=== PATIENT | female | born 1995 | race Caucasian/White ===

== ENCOUNTER 2017-04-09 21:42 | Emergency (ER) | payer OTHER ==
[~2017-04-09] VITALS: Ht 157.5 cm; Wt 66.1 kg
[2017-04-09 21:47] VITALS: TEMP 37.3; Ht 157.5 cm; Wt 66.1 kg
[2017-04-09] MEDS ORDERED: CEFTRIAXONE SOD 350MG/ML 1 GM VIAL IM STA (22:24)
[2017-04-09] MEDS ORDERED: AZITHROMYCIN 250 MG TAB PO ONE (22:30)
[2017-04-09 22:32] LABS: URINE APPEARANCE CLEAR (CLEAR); URINE BILIRUBIN NEG (NEG); URINE COLOR YELLOW; URINE EPITHELIAL CELL AUTO 20-30 /lpf (0-5); URINE NITRITE NEG (NEG); URINE SPECIFIC GRAVITY 1.011 (1.000-1.030); UROBILINOGEN NEG (NEG); ZZUR CULT IF INDIC CLEAN CATCH YES
[2017-04-09 22:37] LABS: MANUAL MICROSCOPIC REQUIRED? NO; REVIEW REQ? NO
[2017-04-09] MEDS ORDERED: VALA1TAB2 PO (22:48)
[2017-04-09 23:02] VITALS: BP 133/89; PULSE 87; O2SAT 100
--- NOTE | 2017-04-10 02:27 | EMERGENCY ROOM VISIT NOTE ---
History First contact with patient: 21:55 Chief Complaint: STD FEMALE Stated Complaint: INFECTION History of Present Illness The patient is a 21 year old female who presents to the Emergency Room with complaints of painful rash to her vaginal area with vaginal itching and discharge. Patient is sexually active with the same partner. No prior STIs. Patient denies dysuria, hematuria, urinary frequency or urgency, abdominal pain , back pain, fever, chills, sore throat. Review of Systems See HPI for pertinent positives & negatives. A total of 10 systems reviewed and were otherwise negative. Past Medical/Surgical History None Social History Smoking Status: Never Smoker Smokeless Tobacco Use: No Alcohol Use: none Drug Use: none Marital Status: in relationship Occupation Status: [employer] student Current/Historical Medications Scheduled Valacyclovir Hcl (Valtrex), 1,000 MG PO BID Physical Exam Vital Signs Date Time Temp Pulse Resp B/P (MAP) Pulse Ox O2 Delivery O2 Flow Rate FiO2 04/09/17 23:02 87 18 133/89 100 04/09/17 21:47 37.3 90 18 134/85 99 Room Air Pain Rating (0-10): 0 Physical Exam VITALS: Vitals are noted on the nurse's note and reviewed by myself. Vital signs stable. GENERAL: Anxious appearing female, in no acute distress, nondiaphoretic, well- developed well-nourished. SKIN: Capillary reflex less than 2 seconds. HEENT: Normocephalic. PERRLA. EOMI. Nares patent. Mucous membranes moist. Neck is supple without nuchal rigidity. HEART: Regular rate and rhythm without murmurs gallops or rubs. LUNGS: Clear to auscultation bilaterally without wheezes, rales or rhonchi. No retractions or accessory muscle use. ABDOMEN: Positive bowel sounds x 4. Normal tympanic percussion. Soft, nontender, without masses or organomegaly. Vail sign negative. No guarding or rebound tenderness. No CVA tenderness exam: Normal external female genitalia with erythematous 1-2 mm raised glossy clustered dermatitis to the vaginal and rectal area most consistent with herpes genitalia, yellow discharge in the vault with cervix is erythematous non- tender to palpation, negative CMT tenderness, no adnexal tenderness. Cultures taken and sent. Water Resource Project Manager present. MUSCULOSKELETAL: No gross musculoskeletal defects. NEURO: Patient was alert and oriented to person place and time. Normal sensation to light and sharp touch. No focal neurological deficits. Medical Decision & Procedures Laboratory Results Test 04/09/17 22:15 04/09/17 22:20 Urine Color YELLOW Urine Appearance CLEAR (CLEAR) Urine pH 7.0 (4.5-7.5) Urine Specific [place] 1.011 (1.000-1.030) Urine Protein NEG (NEG) Urine Glucose (UA) NEG (NEG) Urine Ketones NEG (NEG) Urine Occult Blood NEG (NEG) Urine Nitrite NEG (NEG) Urine Bilirubin NEG (NEG) Urine Urobilinogen NEG (NEG) Urine Leukocyte Esterase MODERATE (NEG) Urine WBC (Auto) 10-30 /hpf (0-5) Urine RBC (Auto) 0-4 /hpf (0-4) Urine Hyaline Casts (Auto) 0 /lpf (0-5) Urine Epithelial Cells (Auto) 20-30 /lpf (0-5) Urine Bacteria (Auto) NEG (NEG) Urine Test NEG (NEG) Date/Time Source Procedure Growth Status 04/09/17 22:20 Cervix Swab Trichomonas Preparation - Final Complete Medications Administered Medications (Trade) Dose Ordered Sig/Katherine Route Start Time Stop Time Status Last Admin Dose Admin Azithromycin (Zithromax Tab) 1,000 mg NOW ONCE PO 04/09/17 22:30 04/09/17 22:31 DC 04/09/17 22:45 1,000 MG Ceftriaxone Sodium (Rocephin Im) 250 mg NOW STAT IM 04/09/17 22:24 04/09/17 22:31 DC 04/09/17 22:45 250 MG Valacyclovir HCl (Valtrex Tab) 1,000 mg NOW ONCE PO 04/09/17 22:30 04/09/17 22:31 DC 04/09/17 22:45 1,000 MG ED Course Prior records/ancillary studies reviewed. Triage Nursing notes reviewed. Additional history obtained from friend The patient's history was concerning for vaginal discharge and rash. Differential diagnosis: Etiologies such as STI, herpes, UTI, infections, PID, cervicitis, as well as others were entertained. Physical examination findings: As above. ER treatment provided: Valtrex, Rocephin, Zithromax On reassessment the patient felt better. Diagnostics interpreted by me: The labs revealed chlamydia and gonorrhea pending, herpes culture pending, negative Trichomonas. Urine seems consistent with contamination and sent for culture Exam and history seems consistent with herpes genitalia. Patient also had copious yellow discharge in the vault with erythematous cervix. She was given antibiotics for coverage for infections. She was advised to abstain from intercourse until reviewed the results and have her partner get checked. She is advised to take medications as directed and to follow-up health services in a few days or here in the ER sooner for pain, fevers, worsening signs or symptoms or as needed. By the evaluation outlined above emergent etiologies such as UTI, renal colic , as well as others were deemed relatively unlikely. The pt informed about the findings as listed above. All questions were answered and pleased with the treatment. Return instructions were outlined and the patient was discharged in stable condition. Outpatient prescription management: Valtrex Referral: The patient was referred back to their primary care physician for follow-up in 2 to 3 days for a recheck of the current condition. Medical Decision As above Medication Reconcilliation Current Medication List: was personally reviewed by me Blood Pressure Screening Patient's blood pressure: Normal blood pressure Impression Primary Impression: Herpes genitalis in women Departure Information Dispostion Home / Self-Care Condition GOOD Prescriptions Valacyclovir Hcl (VALTREX) 1 Gm Tab 1000 MG PO BID for 10 Days, #20 TAB Prov: Katie Becker ., AISSATOU 04/09/17 Referrals Ling Quezada MD Forms WORK / SCHOOL INSTRUCTIONS, HOME CARE DOCUMENTATION FORM, IMPORTANT VISIT INFORMATION Patient Instructions My [facility], ED Herpes Simplex Virus Type 2 Additional Instructions No intercourse until lesions have resolved and you review your culture results that were done today. Have your partner get checked for sexual transmitted infections. Valtrex 1000mg: Take one pill twice daily for 10 days for your infection. Any medication can cause an allergic reaction, stop the pills immediately and return to the ER for rash, hives, breathing difficulties, or swelling. Ibuprofen(Motrin, Advil) may be used for fever or pain. Use 600mg every six hours as needed. Take with food. Avoid using more than 2400mg in a 24 hour period. Do not use 2400mg per day for more than three consecutive days without physician direction. Prolonged inappropriate use can lead to stomach upset or ulcers. (AND/OR) Acetaminophen(Tylenol) may be used for fever or pain. Use 1000mg every six hours as needed. Avoid using more than 3000mg in a 24 hour period. Rest and drink plenty of fluids. Continue current medications. Return to the ER for severe pain, persistent fevers, abdominal pain, chest pain , or any worsening of your condition. Follow up with REGULATORY CONSULTANT in 3-5 days for a recheck of the current condition.
[2017-04-12 13:45] LABS: CHLAMYDIA TRACH RNA*** NOT DETECTED (NOT DETECTED); GC (NEIS GONORRHOEAE)RNA** NOT DETECTED (NOT DETECTED)
[2017-04-15 14:38] LABS: HERPES SIMPLEX CULT SOURCE GENITAL-VAGINAL; HERPES SIMPLEX VIRUS CULT ISOLATED (NOT ISOLATED)
[2017-04-17 11:36] LABS: HSVTYPE1REFLEX ONLY!DON'T ORDR ISOLATED (NOT ISOLATED); HSVTYPE2REFLEX ONLY!DON'T ORDR NOT ISOLATED (NOT ISOLATED)
--- NOTE | 2017-04-22 11:46 | Pharmacy Progress Note ---
ED Pharmacist Culture FollowUp Date of Service: Apr 22, 2017. Charge nurse had left me a message requesting I call her to report the results of her STD testing. She had been diagnosed w/ genital herpes. HSV-I is positive. Other results are negative (HSV-II, gonorrhea, and chlamydia are all negative). I called the phone number provided and left a message requesting she call me back: [phone]
== END 2017-04-09 23:04 | disposition home or self-care (01) ==
LOC: C.EDB 21:45
DX: A60.09 Herpesviral infection of other urogenital tract (principal)